=== PATIENT | male | born 1985 | race African-American/Black ===

== ENCOUNTER 2018-07-10 09:34 | Emergency (ER) | payer OTHER, SELFPAY ==
[~2018-07-10] VITALS: Ht 188 cm; Wt 115.9 kg
[2018-07-10 09:56] VITALS: BP 120/82
[2018-07-10] MEDS ORDERED: HYDROcodone/APAP 5/325 TABLET ONE (11:00)
[2018-07-10] MEDS ORDERED: HYDROcodone/APAP 5/325 TABLET PO ONE (11:00)
== END 2018-07-10 11:43 | disposition home or self-care (01) ==
LOC: ED 11:37
DX: S93.492A Sprain of other ligament of left ankle, initial encounter (principal); S80.02XA Contusion of left knee, initial encounter; X50.1XXA Overexertion from prolonged static or awkward postures, initial encounter; Y93.44 Activity, trampolining; Y92.830 Public park as the place of occurrence of the external cause; Y99.8 Other external cause status
CPT/HCPCS: 99283